=== PATIENT | female | born 1940 | race Caucasian/White ===

== ENCOUNTER 2016-10-24 09:19 | Emergency (ER) | payer MEDICARE ==
[~2016-10-24] VITALS: Ht 157.5 cm; Wt 75.0 kg
[2016-10-24 09:22] VITALS: BP 152/82; PULSE 86; RESP 16; TEMP 98.3; O2SAT 94
[2016-10-24] MEDS ORDERED: PRED2.5T PO (09:46)
[2016-10-24] MEDS ORDERED: LOSA50TA PO (09:46)
[2016-10-24] MEDS ORDERED: ASPI81CH CHEW (09:46)
[2016-10-24] MEDS ORDERED: PLAV75TA29 PO (09:46)
--- NOTE | 2016-10-24 09:50 | PD ---
HPI Chief Complaint: Injury Time Seen by Provider: 09:41 Travel History International Travel<30 days: No Contact w/Intl Traveler<30days: No Traveled to known affect area: No History of Present Illness HPI 75 y/o female presents s/p trip and fall on curb and hit her head. No loss of consciousness noted. She states she is on Plavix for prior TIAs. She states that she has pain nor else other than her head. She fell from standing. She was heading primary doctor's appointment check for her skin graft on her ear. Quality is throbbing. Severity is moderate. PFSH Past Medical History Hx Anticoagulant Therapy: Yes Cerebrovascular Accident: Yes ?: Not Social History Alcohol Use: No Tobacco Use: No Substance Use: No Allergies-Medications (Allergen,Severity, Reaction): Coded Allergies: No Known Allergies (Unverified , 10/24/16) Reported Meds & Prescriptions Reported Meds & Active Scripts Active Reported Aspirin 81 Mg Chew 81 Mg CHEW DAILY Losartan (Losartan Potassium) 50 Mg Tab 50 Mg PO DAILY Prednisone 2.5 Mg Tab 2.5 Mg PO BID Plavix (Clopidogrel Bisulfate) 75 Mg Tab 75 Mg PO DAILY Review of Systems Except as stated in HPI: all other systems reviewed are Neg Physical Exam Narrative General: 75 y/o patient in no apparent distress Skin: trauma noted to right forehead with hematoma and abrasion Eyes: He pulse equal, eomi ENT: no septal hematoma NECK: no pain with palpation and range of motion Cardiovascular: Regular rate and rhythm Respiratory: Normal respiratory effort noted, clear to auscultation bilaterally at apices Abdomen: soft, nontender, nondistended Back: No step-offs, midline spine nontender with palpation Extremities: no pain with movement of joints Neuro: awake, alert, sensation and motor grossly intact Data Data Last Documented VS Vital Signs Date Time Temp Pulse Resp B/P Pulse Ox O2 Delivery O2 Flow Rate FiO2 10/24/16 09:22 98.3 86 16 152/[address] Brain W/O Iv Contrast(Rout) (10/24/16 09:45) Complete Blood Count With Diff (10/24/16 09:45) Basic Metabolic Panel (Bmp) (10/24/16 09:45) Act Partial Throm Time (Ptt) (10/24/16 09:45) Prothrombin Time / Inr (Pt) (10/24/16 09:45) Iv Access Insert/Monitor (10/24/16 09:45) Labs Laboratory Tests Test 10/24/16 09:45 White Blood Count 9.9 TH/MM3 Red Blood Count 5.07 MIL/MM3 Hemoglobin 15.0 GM/DL Hematocrit 44.2 % Mean Corpuscular Volume 87.3 FL Mean Corpuscular Hemoglobin 29.6 PG Mean Corpuscular Hemoglobin 33.9 % Concent Red Cell Distribution Width 13.5 % Platelet Count 268 TH/MM3 Mean Platelet Volume 7.8 FL Neutrophils (%) (Auto) 76.2 % Lymphocytes (%) (Auto) 15.6 % Monocytes (%) (Auto) 6.6 % Eosinophils (%) (Auto) 1.0 % Basophils (%) (Auto) 0.6 % Neutrophils # (Auto) 7.6 TH/MM3 Lymphocytes # (Auto) 1.5 TH/MM3 Monocytes # (Auto) 0.7 TH/MM3 Eosinophils # (Auto) 0.1 TH/MM3 Basophils # (Auto) 0.1 TH/MM3 CBC Comment DIFF FINAL Differential Comment Prothrombin Time 10.5 SEC Prothromb Time International 1.0 RATIO Ratio Activated Partial 26.0 SEC Thromboplast Time Sodium Level 143 MEQ/L Potassium Level 3.9 MEQ/L Chloride Level 107 MEQ/L Carbon Dioxide Level 29.1 MEQ/L Anion Gap 7 MEQ/L Blood Urea Nitrogen 13 MG/DL Creatinine 0.98 MG/DL Estimat Glomerular Filtration 56 ML/MIN Rate Random Glucose 85 MG/DL Calcium Level 9.4 MG/DL MDM Medical Decision Making Medical Screen Exam Complete: Yes Emergency Medical Condition: Yes Medical Record Reviewed: Yes (pmh confirmed) Interpretation(s) CBC & BMP Diagram 10/24/16 09:45 ct head no intracranial Differential Diagnosis Intercranial bleed, fracture, abrasion Narrative Course Will check blood work, CT brain and reevaluate ed workup no acute, Patient denies any new complaints, all questions answered. Patient knows that follow up is incumbent on them and to return to the emergency room immediately if new or worsening symptoms develop. Patient given strict return precautions, vitals reviewed and are normal, agrees to further workup as an outpatient. Diagnosis Primary Impression: Hematoma of frontal scalp Qualified Code: S00.03XA - Hematoma of frontal scalp, initial encounter Patient Instructions: General Instructions Additional Instructions: return as needed, follow with primary this week for recheck, tylenol as needed Med/Other Pt SpecificInfo: No Change to Meds Disposition: 01 DISCHARGE HOME Condition: Stable Roxy Ellis MD Oct 24, 2016 09:50 Condition: Roxy Schilling MD Oct 24, 2016 09:50
[2016-10-24 09:57] LABS: AUTOMATED NEUTROPHIL # 7.6 TH/MM3 (1.8-7.7); BASOPHIL # 0.1 TH/MM3 (0-0.2); BASOPHIL % 0.6 % (0.0-2.0); EOSINOPHIL # 0.1 TH/MM3 (0-0.4); HEMATOCRIT 44.2 % (35.0-46.0); HEMO FLAGS DIFF FINAL; LYMPH % 15.6 % (9.0-44.0); LYMPHOCYTE # 1.5 TH/MM3 (1.0-4.8); MEAN CELL VOLUME 87.3 FL (80.0-100.0); MEAN CORPUSCULAR HEMOGLOBIN 29.6 PG (27.0-34.0); MEAN CORPUSCULAR HGB CONC 33.9 % (32.0-36.0); MONO % 6.6 % (0.0-8.0); NEUT % 76.2 % (16.0-70.0); PLATELET COUNT 268 TH/MM3 (150-450); RED BLOOD COUNT 5.07 MIL/MM3 (4.00-5.30); RED CELL DISTRIBUTION WIDTH 13.5 % (11.6-17.2); WHITE BLOOD COUNT 9.9 TH/MM3 (4.0-11.0)
[2016-10-24 10:08] LABS: PROTHROMBIN TIME - PATIENT 10.5 SEC (9.8-11.6)
[2016-10-24 10:26] LABS: BICARBONATE 29.1 MEQ/L (21.0-32.0); POTASSIUM 3.9 MEQ/L (3.5-5.1)
--- NOTE | 2016-10-24 10:34 | RADRPT ---
EXAM DATE/TIME: 10/24/2016 10:21 [facility] COMPARISON: No previous studies available for comparison. INDICATIONS : Trauma to left side of the forehead. RADIATION DOSE: 29.29 CTDIvol (mGy) MEDICAL HISTORY : stroke SURGICAL HISTORY : None. ENCOUNTER: Initial ACUITY: 1 day PAIN SCALE: 4/10 LOCATION: Left frontal TECHNIQUE: Multiple contiguous axial images were obtained of the head. Using automated exposure control and adj ustment of the mA and/or kV according to patient size, radiation dose was kept as low as reasonably a chievable to obtain optimal diagnostic quality images. DICOM format image data is available electro nically for review and comparison. FINDINGS: CEREBRUM: The ventricles are normal for age. No evidence of midline shift, mass lesion, hemorrhage or acute in farction. No extra-axial fluid collections are seen. POSTERIOR FOSSA: The cerebellum and brainstem are intact. The 4th ventricle is midline. The cerebellopontine angle i s unremarkable. EXTRACRANIAL: The visualized portion of the orbits is intact. Subgaleal hematoma is noted within the left frontal r egion. SKULL: The calvaria is intact. No evidence of skull fracture. CONCLUSION: No acute intracranial abnormality. Subgaleal hematoma within the left frontal region. Avery Morse MD on October 24, 2016 at 10:30 Board Certified Radiologist. This report was verified electronically.
== END 2016-10-24 10:50 | disposition home or self-care (01) ==
LOC: NEPE 09:19
DX: S00.03XA Contusion of scalp, initial encounter (principal); Z86.73 Personal history of transient ischemic attack (TIA), and cerebral infarction without residual deficits; Z79.02 Long term (current) use of antithrombotics/antiplatelets; Z79.82 Long term (current) use of aspirin; Z79.899 Other long term (current) drug therapy; W01.0XXA Fall on same level from slipping, tripping and stumbling without subsequent striking against object, initial encounter
CPT/HCPCS: 70450; 80048; 85025; 85610; 85730